=== PATIENT | male | born 1980 | race Caucasian/White ===

== ENCOUNTER 2020-01-01 14:34 | Emergency (ER) | payer OTHER ==
[2020-01-01] MEDS ORDERED: HYDROcod/ACETAM 5/325 MG TABLET PO STA ×2 (14:53→16:10)
--- NOTE | 2020-01-01 14:54 | ED Physician Documentation ---
PD HPI LOWER EXT INJURY - Stated complaint Stated Complaint: R FT INJ - Chief complaint Chief Complaint: Ext Problem - History obtained from History obtained from: Patient - History of Present Illness PD HPI LOW EXT INJURY LOCATION: Right, Ankle, Foot Type of injury: Twist (inversion) Where injury occurred: Home Timing - onset: How many hours ago (2-3), Today Worsened by: Moving, Palpating Associated symptoms: Swelling. No: Weakness, Numbness Similar symptoms before: Has not had sx before Review of Systems Skin: denies: Abrasion (s), Laceration (s) Neurologic: denies: Focal weakness, Numbness PD PAST MEDICAL HISTORY - Past Medical History Past Medical History: No - Past Surgical History Past Surgical History: Yes General: Appendectomy - Present Medications Home Medications: Ambulatory Orders Medication Instructions Recorded Confirmed Hydrocodone/Acetaminophen [Kiester 1 each PO Q6H PRN #12 tablet 01/01/20 5-325 Tablet] - Allergies Allergies/Adverse Reactions: Allergies Allergy/AdvReac Type Severity Reaction Status Date / Time No Known Drug Allergies Allergy Verified 01/01/20 14:47 - Social History Does the pt smoke?: No Smoking Status: Never smoker Does the pt drink ETOH?: No Does the pt have substance abuse?: No - Immunizations Immunizations are current?: Yes PD ED PE NORMAL - Vitals Vital signs reviewed: Yes - General General: Alert and oriented X 3, No acute distress, Well developed/nourished - Derm Derm: Normal color, Warm and dry - Extremities Extremities: Other (Right foot and ankle with tenderness over the anterolateral aspect of the ankle with with some mild swelling there. The Achilles and medial ankle are nontender. The foot shows tenderness with swelling over the midportion of the fifth metatarsal. He is able to flex and extend his little toe though it hurts. Normal sensation color and cap refill in the toes. No skin sores.) - Neuro Neuro: No motor deficit, No sensory deficit Results - Vitals Vitals: Vital Signs - 24 hr 01/01/20 01/01/20 14:40 16:27 Temperature 36.7 C 36.6 C Heart Rate 95 90 Respiratory 18 16 Rate Blood Pressure 134/85 H 130/86 H O2 Saturation 98 98 Oxygen O2 Source Room air - Rads (name of study) right foot and ankle Radiology: Prelim report reviewed (The ankle is okay. The right foot shows a fracture of the midshaft of the fifth metatarsal with some slight displacement minimal angulation.), See rad report PD MEDICAL DECISION MAKING - ED course Complexity details: reviewed results, considered differential, d/w patient Departure - Departure Disposition: 01 Home, Self Care Clinical Impression: Ankle sprain Qualifiers: Encounter type: initial encounter Involved ligament of ankle: anterior talofibular ligament Laterality: right Qualified Code(s): S93.491A - Sprain of other ligament of right ankle, initial encounter Metatarsal fracture Qualifiers: Encounter type: initial encounter Metatarsal bone: fifth Fracture type: closed Fracture alignment: displaced Laterality: right Qualified Code(s): S92.351A - Displaced fracture of fifth metatarsal bone, right foot, initial encounter for closed fracture Condition: Stable Record reviewed to determine appropriate education?: Yes Instructions: ED Fx Foot Follow-Up: ANABELLA Carter [Provider Group] Prescriptions: Hydrocodone/Acetaminophen [Kiester 5-325 Tablet] 1 each PO Q6H PRN #12 tablet PRN Reason: Pain Comments: Elevate rest and ice your foot often to minimize swelling. Use the cast boot to protect both the foot and ankle movement. Crutches for nonweightbearing initially until follow-up. Naproxen anti-inflammatory as previously prescribed. Add Tylenol or hydrocodone if needed for pain. The pain of this should decrease significantly over the first several days. Follow-up with your primary care and orthopedics on the [facility] for reevaluation of this later in the week or in about a week. Commonly they will re-x-ray to see if it is maintaining position and decide if it needs treatment such as pinning or screw. To my eye at this point it looks like it would heal adequately with just immobilization. Discharge Date/Time: 01/01/20 16:27
--- NOTE | 2020-01-01 15:34 | XRAY Report ---
Reason: inversion injury; pain ankle and 5th MT area Procedure Date: 01/01/2020 Accession Number: [id number] / [id number] Procedure: XR - Ankle 3 View RT CPT Code: Final Report FULL RESULT: EXAM: RIGHT ANKLE RADIOGRAPHY EXAM DATE: 01/01/2020 03:11 PM. CLINICAL HISTORY: Inversion injury; pain ankle and 5th MT area. COMPARISON: FOOT 3 VIEW RT 01/01/2020 2:49 PM. TECHNIQUE: 3 views. FINDINGS: Bones: Bony mineralization appears appropriate. Mildly displaced oblique fifth metatarsal fracture. No other acute fracture or focal osseous destruction. Joints: Alignment and joint spaces appear maintained. Probable ankle joint effusion. Soft Tissues: No radiopaque foreign body. IMPRESSION: Partially visualized oblique fifth metatarsal fracture. No other fracture or dislocation identified. [facility]
--- NOTE | 2020-01-01 15:36 | XRAY Report ---
Reason: inversion injury; pain ankle and 5th MT area Procedure Date: 01/01/2020 Accession Number: [id number] / [id number] Procedure: XR - Foot 3 View RT CPT Code: Final Report FULL RESULT: EXAM: RIGHT FOOT RADIOGRAPHY EXAM DATE: 01/01/2020 03:11 PM. CLINICAL HISTORY: Inversion injury; pain ankle and 5th MT area. COMPARISON: None. TECHNIQUE: 3 views. FINDINGS: Bones: Comminuted, mildly displaced and angulated mid to distal fifth metatarsal fracture. Small fracture fragments. Joints: No dislocation. Soft Tissues: Soft tissue swelling. No radiopaque foreign body. IMPRESSION: Comminuted, mildly displaced and angulated mid to distal fifth metatarsal fracture. RADIA
[2020-01-01 16:29] VITALS: BP 130/86
== END 2020-01-01 16:27 | disposition home or self-care (01) ==
LOC: ED 14:34
DX: S93.491A Sprain of other ligament of right ankle, initial encounter (principal); S92.351A Displaced fracture of fifth metatarsal bone, right foot, initial encounter for closed fracture; X50.1XXA Overexertion from prolonged static or awkward postures, initial encounter; Y93.01 Activity, walking, marching and hiking; Y92.008 Other place in unspecified non-institutional (private) residence as the place of occurrence of the external cause
CPT/HCPCS: 73610; 73630; 99283; A9270